=== PATIENT | male | born 1990 | race Caucasian/White ===

== ENCOUNTER 2019-02-18 13:14 | Observation (INO) | payer OTHER ==
--- NOTE | 2019-02-18 13:23 | PDOC ---
Rapid Medical Evaluation Time Seen by Provider: 02/18/19 13:18 Medical Evaluation: 02/18/19 13:18 I have performed a brief in-person evaluation of this patient. The patient presents with a chief complaint of: Right foot pain x 2 weeks, [facility] Pertinent physical exam findings: NAD I have ordered the following:Nothing, no med list provided The patient will proceed to the ED for further evaluation. Discharge Disposition - Diagnosis Foot pain - Referrals - Patient Instructions - Post Discharge Activity
[2019-02-18 13:24] VITALS: BP 133/88; PULSE 115; TEMP 98.3; BMI 40.3
[2019-02-18] MEDS ORDERED: SODIUM CHLORIDE 3,402 ML IV ONE (14:12)
--- NOTE | 2019-02-18 14:12 | PDOC ---
History of Present Illness - General Chief Complaint: Pain Stated Complaint: RIGHT FOOT PAIN Time Seen by Provider: 02/18/19 13:18 History Source: Patient Exam Limitations: No Limitations - History of Present Illness Initial Comments: 28 yo obese M w a pmh of recently diagnosed DM presents to the ER from [facility] where he was getting rehab after being hospitalized for 3 weeks in [facility] [place] [facility] for pneumonia. He was BIBEMS because his foot has been hurting a great deal for the past 3 weeks and now it is unbearable. The patient states the entire bottom of his foot is red and painful even to slight pressure. The pain has been worsening gradually since he was hospitalized in [place]. He was sent here from [facility] to "get a CT scan of both his foot and chest" he denies having any chest pain, SOB, difficulty breathing, fevers, chills, night sweats, dysuria, frequency or urgency. PCP: None PSH: R foot surgery - 8 years prior Allergies: Penicillins Social Hx: Denies smoking, drinking, or other substance usage. Past History - Past Medical History Allergies/Adverse Reactions: Allergies Allergy/AdvReac Type Severity Reaction Status Date / Time Penicillins Allergy Verified 02/18/19 13:19 Home Medications: Ambulatory Orders Naproxen Sodium 220 mg PO BID PRN #30 tablet 02/18/19 traMADol HCL [Ultram -] 50 mg PO TID PRN #12 tablet MDD 3 02/18/19 COPD: No Diabetes: Yes - Immunization History Immunization Up to Date: Yes - Suicide/Smoking/Psychosocial Hx Smoking History: Never smoked Hx Alcohol Use: No Drug/Substance Use Hx: No Review of Systems - Review of Systems Able to Perform ROS?: Yes Comments:: CONSTITUTIONAL: Absent: fever, no chills, no fatigue EYES: Absent: visual changes ENT: Absent: ear pain, no sore throat CARDIOVASCULAR: Absent: chest pain, no palpitations RESPIRATORY: Absent: cough, no SOB GI: Absent: abdominal pain, no nausea, no vomiting, no constipation, no diarrhea GENITOURINARY: Absent: dysuria, no frequency, no hematuria MUSKULOSKELETAL: Present: Arthralgia Absent: back pain, no myalgia SKIN: Present: rash NEURO: Absent: headache *Physical Exam - Vital Signs Last Vital Signs Temp Pulse Resp BP Pulse Ox 98.3 F 115 H 18 133/88 97 02/18/19 13:19 02/18/19 13:19 02/18/19 13:19 02/18/19 13:19 02/18/19 13:19 - Physical Exam Comments: RIGHT FOOT: The sole of his foot is erythematous under his big toe. There is a not well circumscribed area of erythema without clear borders that is very painful to touch. GENERAL: Well-appearing, well-nourished. No apparent distress. HEENT: Normocephalic, atraumatic. PERRL, EOM intact. CARDIOVASCULAR: Tachycardic rate. Normal S1, S2. Regular rhythm. PULMONARY: No evidence of respiratory distress. Lungs clear to auscultation bilaterally. No wheezing, rales or rhonchi. ABDOMEN: Soft, non-distended, non-tender. EXTREMITIES: Normal ROM in all four extremities. No gross deformities. SKIN: Warm, dry. Right foot rash NEUROLOGICAL: No focal neurological deficits. ED Treatment Course - LABORATORY CBC & Chemistry Diagram: 02/18/19 14:32 02/18/19 14:32 Medical Decision Making - Medical Decision Making 28 yo obese M w a pmh of recently diagnosed DM presents to the ER from [facility] where he was getting rehab after being hospitalized for 3 weeks in [facility] [place] [facility] for pneumonia. He was BIBEMS because his foot has been hurting a great deal for the past 3 weeks and now it is unbearable. The patient states the entire bottom of his foot is red and painful even to slight pressure. The pain has been worsening gradually since he was hospitalized in [place]. He was sent here from [facility] to "get a CT scan of both his foot and chest" VS: Tachycardic, otherwise wnl DDx IBNLT: Cellulitis vs osteomyelitis Plan: Septic workup, right foot and chest CT, IV hydration, Abx, re-assess. Patient really wants to leave the hospital. He does not want to go back to [facility] either. - Patient was informed that he can be discharged back to the [facility] and then sign out AMA from the home. *DC/Admit/Observation/Transfer Diagnosis at time of Disposition: Plantar fasciitis of right foot Foot pain Qualifiers: Laterality: right Qualified Code(s): M79.671 - Pain in right foot - Discharge Dispostion Disposition: [facility]IOR [facility]ARE FACILITY Condition at time of disposition: Stable Decision to Admit order: Yes - Prescriptions Prescriptions: Naproxen Sodium 220 mg PO BID PRN #30 tablet PRN Reason: Pain traMADol HCL [Ultram -] 50 mg PO TID PRN #12 tablet MDD 3 PRN Reason: Severe Pain - Referrals - Patient Instructions Printed Discharge Instructions: Plantar Fasciitis, DI for Plantar Fasciitis, DI for Metatarsalgia, DI for Foot Pain Additional Instructions: Thank you for coming in to the ER today Please be sure to follow up with your primary care physician Please take medications as prescribed If you develop pain in any other place in your leg, please return to the ER for any other concerns or complaints - Post Discharge Activity
[2019-02-18 14:54] LABS: BASO % 0.7 % (0-2.0); EOS % 2.3 % (0-4.5); HEMATOCRIT 41.5 % (35.4-49); HEMOGLOBIN 13.4 GM/dL (11.7-16.9); MCH 27.1 pg (25.7-33.7); MCHC 32.3 g/dl (32.0-35.9); MEAN CELL VOLUME 83.8 fl (80-96); MEAN PLT VOLUME 7.8 fl (7.5-11.1); MONO % 5.8 % (3.8-10.2); NEUT % 55.2 % (42.8-82.8); PLATELET COUNT 359 K/MM3 (134-434); RBC 4.95 M/mm3 (4.00-5.60); RDW 15.9 % (11.9-15.9)
[2019-02-18 15:09] LABS: INR 1.06 (0.83-1.09); PROTHROMBIN TIME (PATIENT) 12.5 SEC (9.7-13.0)
[2019-02-18 15:11] LABS: ACTIVATED PTT 36.4 SECONDS (25.2-36.5)
[2019-02-18 15:20] LABS: ALBUMIN 3.9 g/dl (3.4-5.0); ALK PHOS 102 U/L (45-117); ANION GAP 7 MMOL/L (8-16); BILIRUBIN,TOTAL 0.5 mg/dL (0.2-1); BLOOD UREA NITROGEN 6 mg/dL (7-18); CALCIUM 9.7 mg/dL (8.5-10.1); CHLORIDE 103 mmol/L (98-107); CO2 26 mmol/L (21-32); CREATININE 0.4 mg/dL (0.55-1.3); GLUCOSE,RANDOM 93 mg/dL (74-106); POTASSIUM 4.1 mmol/L (3.5-5.1); SGOT/AST 42 U/L (15-37); SGPT/ALT 81 U/L (13-61); SODIUM 136 mmol/L (136-145); TOT PROT 7.5 g/dl (6.4-8.2)
--- NOTE | 2019-02-18 16:01 | PDOC ---
Documentation entered by Sae Arteaga SCRIBE, acting as scribe for Ksenia Holden MD. Ksenia Holden MD: This documentation has been prepared by the Jenni ambrocio Nirvannie, SCRIBE, under my direction and personally reviewed by me in its entirety. I confirm that the documentation accurately reflects all work, treatment, procedures, and medical decision making performed by me. Attending Attestation - Resident Resident Name: Howie Freeman - ED Attending Attestation I have performed the following: I have examined & evaluated the patient, The case was reviewed & discussed with the resident, I agree w/resident's findings & plan - HPI HPI: 02/18/19 15:41 The patient is a 28 year old male, with a significant past medical history of DM and recent hospitalization at [facility] for pneumonia (3 weeks ago, intubated and ? pleurocentesis), who presents to the emergency department from [facility] for 3 weeks of worsening right foot pressure-like pain with erythema. As per EMS , patient was sent to the ED for a CT right LE and chest. He denies any fevers or chills. Allergies: Penicillins. Social History: [facility] - Physicial Exam PE: 02/18/19 15:57 GENERAL: The patient is in no acute distress. ENT: Ears normal, nares patent, oropharynx clear without exudates. Moist mucous membranes. No tonsillar enlargement, no exudates NECK: Normal range of motion, supple, no nuchal rigidity (+) LAD LUNGS: Breath sounds equal, clear to auscultation bilaterally. No wheezes, and no crackles. HEART:Regular rate and rhythm, normal S1 and S2 without murmur, rub or gallop. ABDOMEN: Soft, nontender, normoactive bowel sounds. EXTREMITIES: Normal range of motion, no edema. NEUROLOGICAL: Cranial nerves II through XII grossly intact. Normal speech. No focal neurological deficits. SKIN: Warm, Dry, normal turgor, no rashes or lesions noted. - Medical Decision Making 02/18/19 15:58 Twelve-lead EKG was performed and reviewed by me. There is normal sinus rhythm with a tachycardiac rate 106 bpm. The axis is normal. The intervals are normal. There are no ST or T wave abnormalities. Impression: sinus tachycardia, initial presentation 02/18/19 18:25 Laboratory Tests 02/18/19 02/18/19 02/18/19 14:32 14:32 14:32 WBC 9.0 Hgb 13.4 Hct 41.5 Plt Count 359 INR 1.06 BUN 6 L Creatinine 0.4 L Alkaline Phosphatase 102 Troponin I 02/18/19 14:32 WBC Hgb Hct Plt Count INR BUN Creatinine Alkaline Phosphatase Troponin I < 0.02 CT - no osteomyelitis CT chest - no pe, trace pleural effusion, RLL atalectasis 02/18/19 19:28 Pt foot does not look cellulitis He is ambulatory but is in pain when he walks Case reviewed with Dr Coleman He ALSO saw this patient's foot prior to transfer and did not think it looked cellulitis Will plan to discharge to home Pt does not want to stay at the residential either *DC/Admit/Observation/Transfer Diagnosis at time of Disposition: Plantar fasciitis of right foot Foot pain Qualifiers: Laterality: right Qualified Code(s): M79.671 - Pain in right foot - Discharge Dispostion Disposition: RETIREMENT FACILITY Condition at time of disposition: Stable Decision to Admit order: No - Referrals - Patient Instructions Printed Discharge Instructions: DI for Foot Pain, DI for Metatarsalgia, DI for Plantar Fasciitis, Plantar Fasciitis Additional Instructions: Thank you for coming in to the ER today Please be sure to follow up with your primary care physician Please take medications as prescribed If you develop pain in any other place in your leg, please return to the ER for any other concerns or complaints - Post Discharge Activity
[2019-02-18] MEDS ORDERED: IBUPROFEN 400 MG TABLET (FP) PO ONE ×2 (17:30→17:36)
[2019-02-18 18:11] LABS: PH,URINE 5.5 (5.0-8.0); URINE APPEARANCE CLEAR; URINE BILIRUBIN NEGATIVE (NEGATIVE); URINE COLOR YELLOW; URINE GLUCOSE (UA) NEGATIVE (NEGATIVE); URINE KETONE NEGATIVE (NEGATIVE); URINE LEUK ESTERASE NEGATIVE (NEGATIVE); URINE NITRITE NEGATIVE (NEGATIVE); URINE PROTEIN NEGATIVE (NEGATIVE); URINE UROBILINOGEN 0.2 mg/dL (0.2-1.0)
[2019-02-18] MEDS ORDERED: CLINDAMYCIN 600MG PREMIX IVPB 600 MG/50 ML BAG IVPB ONE (18:16)
--- NOTE | 2019-02-19 09:42 | EKG ---
Test Reason : Blood Pressure : / mmHG Vent. Rate : 106 BPM Atrial Rate : 106 BPM P-R Int : 140 ms QRS Dur : 086 ms QT Int : 324 ms P-R-T Axes : 031 015 007 degrees QTc Int : 430 ms SINUS TACHYCARDIA OTHERWISE NORMAL ECG NO PREVIOUS ECGS AVAILABLE Confirmed by ALESSANDRO CROWLEY, MEREDITH ([id number]) on 02/19/2019 9:42:49 AM Referred By: Confirmed By:MEREDITH FRANCOIS MD
== END 2019-02-18 19:59 ==
LOC: JER 13:14 → JERBED 18:17 → JER 19:59
PROVIDERS: ADMIT Family Medicine; ATTEND Family Medicine
PROC: 3E0337Z Introduction of Electrolytic and Water Balance Substance into Peripheral Vein, Percutaneous Approach (ICD-10-PCS; principal; 2019-02-18)
DX: M72.2 Plantar fascial fibromatosis (principal); M79.671 Pain in right foot; E11.9 Type 2 diabetes mellitus without complications; Z68.41 Body mass index [BMI] 40.0-44.9, adult; E66.9 Obesity, unspecified; Z88.0 Allergy status to penicillin
CPT/HCPCS: 36415; 71275-TC; 73700-TC-RT; 80053; 81003; 83605; 84484; 85025; 85610; 85730; 87040; 87086; 93005; 93010; 96360; 96361; 99284-25; G0378; J7030